=== PATIENT | male | born 1945 | race Caucasian/White ===

== ENCOUNTER 2019-11-21 00:29 | Day surgery (SDC) | payer MEDICARE, SELFPAY ==
[2019-11-18 10:11] VITALS: BMI 34.2
--- NOTE | 2019-11-21 07:19 | WPDHPUPDATE1 ---
History and Physical Update Update Date/Time: 11/21/19 07:19 History and Physical has been reviewed, including an updated exam of the patient. There are NO changes in the patient's condition. Risks, benefits, and alternatives have been discussed and questions answered. Patient agrees to proceed with procedure.
--- NOTE | 2019-11-21 08:51 | ECG_ITS ---
Measurements Intervals [place] Rate: 80 P: 27 VA: 194 QRS: 2 QRSD: 97 T: 52 QT: 376 QTc: 434 Interpretive Statements SINUS RHYTHM EARLY PRECORDIAL R/S TRANSITION BASELINE ARTIFACT- I, II, AVR, V1 BORDERLINE ECG Electronically Signed On 11-21-2019 10:02:49 CDT by Blake Devries D.O.
[2019-11-21 09:00] VITALS: BP 153/63; PULSE 85; RESP 18; TEMP 36.4; O2SAT 100
[2019-11-21] MEDS: LACTATED RINGERS 1,000 ML 30 ML IV CONT (09:30)
--- NOTE | 2019-11-21 09:37 | P.PNAN_ITS ---
Anes - Initial Pre Proc Eval Procedure: Operation Date: 11/21/19 11:00 Proposed Procedures p Cystoscopy, Urethral Dilatation - Dewey Patel MD Date/Time: 11/21/19 09:37 Surgeon: Dewey Patel MD Pre Op Diagnosis: urethral stricture Patient Data Age: 74 Gender: M Height: 5 ft 8 in Weight: 102.27 kg Allergies Allergy/AdvReac Type Severity Reaction Status Date / Time sulfamethoxazole Allergy Severe Anaphylaxis Verified 11/18/19 10:00 sulfamethizole Allergy Unknown Anaphylaxis Verified 11/18/19 10:00 trimethoprim Allergy Unknown Anaphylaxis Verified 11/18/19 10:00 Home Medications Medication Instructions Recorded Confirmed Type guaifenesin 1,200 mg tablet, 1,200 mg PO BID 07/12/19 11/18/19 History extended release 12 hr lisinopril 10 mg tablet 10 mg PO DAILY 07/12/19 11/18/19 History meloxicam 7.5 mg tablet 7.5 mg PO DAILY 07/12/19 11/18/19 History montelukast 10 mg tablet 10 mg PO DAILY 07/12/19 11/18/19 History albuterol sulfate 90 mcg/actuation 2 inhalation INHALATION Q4-6H PRN 07/15/19 11/18/19 Rx aerosol inhaler #8.5 gm fenofibrate 40 mg tablet 160 mg PO DAILY 07/15/19 11/18/19 History fluticasone propionate 50 1 spray NASAL DAILY 07/15/19 11/18/19 History mcg/actuation nasal spray,suspension simvastatin 20 mg tablet 20 mg PO DAILY 07/15/19 11/18/19 History Lianna-Brodhead Plus C/C(PE,DM) 1,200 mg BID 11/18/19 11/18/19 History budesonide-formoterol [Symbicort] 2 puff INHALATION Q12H 11/18/19 11/18/19 History Patient hx anesthesia problems: none Family hx anesthesia problems: none PMFSH Past Medical History Medical History (Updated 11/21/19 @ 09:37 by Hugh Jessica MD) HTN (hypertension) Hypersomnia with sleep apnea, unspecified Obesity Surgical History Surgical History (Updated 11/21/19 @ 09:37 by Hugh Jessica MD) Hx of cystoscopy Family History Family History Mother Family history of emphysema Social History Social History Smoking status: Never smoker Anes - Eval Final PreProcedure Day of Procedure 11/21/19 09:37 Patient weight: obese Heart: regular rate and rhythm Lungs: clear to auscultation Airway: Mallampati scale class II Neurological: alert and oriented Last oral intake: >/= 8 hours ASA classification: III Emergent: no Anesthetic plan: proceed Anesthesia type and monitoring: general LMA and standard monitoring Informed Consent: The patient's anesthetic plan and its attendant risks and benefits were discussed with the patient/family/POA. Questions were solicited and answers provided to the satisfaction of the patient/family/POA.
[2019-11-21] MEDS: ceFAZolin 2 GM/D5W 50 ML 2 GM/50 ML BAG IVPB (10:05)
[2019-11-21] MEDS: LIDOCAINE HCL 2% GEL UROJET 10 ML PKG MUCOUS MEM (10:09)
--- NOTE | 2019-11-21 10:35 | SUR.OPER ---
EBL 25
--- NOTE | 2019-11-21 10:47 | PM.PROC ---
Procedure Note - Detailed Date of procedure: 11/21/19 Pre-op diagnosis: urethral stricture Post-op diagnosis: other (1. Bulbous urethral stricture 2. Bladder neck contracture) Procedure performed: 1. Optical internal urethrotomy. 2. Cystoscopy, urethral dilatation. Description of procedure: The patient was brought to the operative suite where he was prepped and draped in a routine sterile fashion while in a dorsal lithotomy position after the uneventful administration of general anesthetic by the anesthesia department. 2% Lidocaine was placed in the uretha and allowed to stand for an appropriate period of time. Cystoscopy was undertaken with a 19F rigid cystoscope. He has a long, tight constricting stricture of the bulbous urethra. Using the optical urethratome, I incised the strictured urethra at the 12 o'clock position care taken to avoid injury to the membranous urethra. I then found a tight bladder neck contracture that I dilated with Amplatz over a guidewire from 12F->24F. An 18F Nolas[place] catheter was placed, the bladder was emptied and the patient was taken to the recovery room in good condition. Anesthesia: GLMA Surgeon: Dewey Patel MD Estimated blood loss (mL): 0 Drains: Yes (18F [place] tip catheter.) Packing: No Pathology: none sent Complications: No immediate complications Condition: stable Disposition: PACU
[2019-11-21 11:08] VITALS: BP 118/44; PULSE 72; RESP 18; TEMP 36.6; O2SAT 100
[2019-11-21 11:38] VITALS: BP 120/57; PULSE 78; RESP 16; O2SAT 100
[2019-11-21 12:13] VITALS: BP 123/58; PULSE 75; RESP 18; O2SAT 98
== END 2019-11-21 12:15 | disposition home or self-care (01) ==
PROVIDERS: PCP Internal Medicine; Visit Provider Urology
PROC: 0T7D8ZZ Dilation of Urethra, Via Natural or Artificial Opening Endoscopic (ICD-10-PCS; CPT 52281; principal; 2019-11-21 11:00)
DX: N35.912 Unspecified bulbous urethral stricture, male (principal); I10 Essential (primary) hypertension; G47.10 Hypersomnia, unspecified; G47.30 Sleep apnea, unspecified; E66.9 Obesity, unspecified; Z68.34 Body mass index [BMI] 34.0-34.9, adult
CPT/HCPCS: 52276; 93005; A9270; C1726; C1769; J0690; J2370; J2405; J2704; J3010; J7120

== ENCOUNTER 2020-08-24 13:18 | Outpatient (CLI) | payer MEDICARE, SELFPAY ==
--- NOTE | ~2020-08-24 | CT_ITS ---
EXAMINATION: CT chest wo con DATE: 08/24/2020 13:42 INDICATION: Dirk Romero lung, COPD, history of asthma TECHNIQUE: Computed tomography (CT) of the chest was performed without intravenous contrast. The dose -length product (DLP) was 234.18 mGy-cm. Automated exposure control and iterative reconstruction tech Anametrix were employed. COMPARISON: 10/12/2018 FINDINGS: There are scattered stable nodules in the lungs which measure up to 3 mm, consistent with o ld granulomatous disease. There are groundglass opacities in the lower lobes and right middle lobe. T here is mild emphysema. No pleural effusion or pneumothorax is identified. The heart size is normal. There is calcified coronary artery atherosclerosis. There are no pathologically enlarged thoracic lym ph nodes. There are bridging osteophytes at multiple levels in the spine, consistent with diffuse idi opathic skeletal hyperostosis (DISH). IMPRESSION: 1. Patchy groundglass opacities of the lower lobes and right middle lobe which may be infectious or i nflammatory. 2. Mild emphysema. Reviewed, dictated and finalized at location A. EO RETINAL SURGEON IMPRESSION: 1. Patchy groundglass opacities of the lower lobes and right middle lobe which may be infectious or inflammatory. 2. Mild emphysema.
== END 2020-08-24 13:19 | disposition home or self-care (01) ==
PROVIDERS: PCP Internal Medicine; Visit Provider Nurse Practitioner Family
DX: J44.9 Chronic obstructive pulmonary disease, unspecified (principal); J67.2 Bird fancier's lung; R91.8 Other nonspecific abnormal finding of lung field; J43.9 Emphysema, unspecified
CPT/HCPCS: 71250

== ENCOUNTER → 2021-01-06 08:36 | Outpatient (CLI) | payer MEDICARE, SELFPAY ==
[2021-01-06 17:41] LABS: SARS-CoV-2 RNA PCR Negative
== END ==
PROVIDERS: PCP Internal Medicine; Visit Provider Urology
DX: Z01.812 Encounter for preprocedural laboratory examination (principal); Z20.822 Contact with and (suspected) exposure to COVID-19
CPT/HCPCS: C9803; U0003; U0005

== ENCOUNTER 2021-01-06 08:44 | Outpatient (CLI) | payer MEDICARE, SELFPAY ==
--- NOTE | 2021-01-06 09:00 | ECG_ITS ---
Measurements Intervals [place] Rate: 77 P: 44 [place]: 220 QRS: 2 QRSD: 95 T: 46 QT: 379 QTc: 431 Interpretive Statements SINUS RHYTHM WITH FIRST DEGREE AV BLOCK CONSIDER INFERIOR INFARCT, AGE INDETERMINATE ABNORMAL ECG Electronically Signed On 01-06-2021 8:59:38 CDT by Blake Devries D.O.
== END 2021-01-06 08:45 | disposition home or self-care (01) ==
LOC: ANHSURGERY 08:49
PROVIDERS: PCP Internal Medicine; Visit Provider Urology
DX: Z01.810 Encounter for preprocedural cardiovascular examination (principal); I44.0 Atrioventricular block, first degree; I10 Essential (primary) hypertension
CPT/HCPCS: 93005

== ENCOUNTER 2021-01-07 00:36 | Day surgery (SDC) | payer MEDICARE, SELFPAY ==
[2021-01-05 16:05] VITALS: BMI 33.5
--- NOTE | 2021-01-07 06:32 | WPDHPUPDATE1 ---
History and Physical Update Update Date/Time: 01/07/21 06:32 History and Physical has been reviewed, including an updated exam of the patient. There are NO changes in the patient's condition. Risks, benefits, and alternatives have been discussed and questions answered. Patient agrees to proceed with procedure.
[2021-01-07] MEDS: LACTATED RINGERS 1,000 ML 30 ML IV CONT (11:00)
--- NOTE | 2021-01-07 11:02 | WPDANESEPPF ---
Anes - Initial Pre Proc Eval Procedure: Operation Date: 01/07/21 12:15 Proposed Procedures p Cystoscopy, Urethral Dilatation - Dewey Patel MD Date/Time: 01/07/21 11:02 Surgeon: Dewey Patel MD Pre Op Diagnosis: bulbous urethral stricture Patient Data Age: 75 Gender: M Height: 5 ft 8 in Weight: 100 kg Allergies Allergy/AdvReac Type Severity Reaction Status Date / Time sulfamethoxazole Allergy Severe Anaphylaxis Verified 01/07/21 10:59 trimethoprim Allergy Severe Anaphylaxis Verified 01/07/21 10:59 Home Medications Medication Instructions Recorded Confirmed Type guaifenesin 1,200 mg tablet, 1,200 mg PO DAILY 07/12/19 01/07/21 History extended release 12 hr lisinopril 10 mg tablet 10 mg PO DAILY 07/12/19 01/07/21 History meloxicam 7.5 mg tablet 15 mg PO DAILY 07/12/19 01/07/21 History montelukast 10 mg tablet 10 mg PO DAILY 07/12/19 01/07/21 History simvastatin 20 mg tablet 20 mg PO DAILY 07/15/19 01/07/21 History budesonide-formoterol HFA 160 2 puff INHALATION Q12H #10.2 g 11/18/20 01/07/21 Rx mcg-4.5 mcg/actuation aerosol inhaler albuterol sulfate [ProAir HFA] 2 puff INHALATION QID PRN 01/05/21 01/07/21 History Patient hx anesthesia problems: none Family hx anesthesia problems: none PMFSH Past Medical History Medical History Chronic obstructive pulmonary disease Dysphagia, unspecified HTN (hypertension) Hypersomnia with sleep apnea, unspecified Obesity Prostate CA Surgical History Surgical History Hx of cystoscopy Family History Family History Mother Family history of emphysema Social History Social History Smoking status: Never smoker Alcohol intake: former Alcohol use details: FORMER SOCIAL DRINKER Substance use: never Living arrangements: with family Additional living arrangements comments: Spiritual care concerns: No Anes - Eval Final PreProcedure Day of Procedure 01/07/21 11:02 Patient weight: obese Heart: regular rate and rhythm Lungs: decreased breath sounds Airway: Mallampati scale class II Neurological: other (alert) Last oral intake: >/= 8 hours ASA classification: III Emergent: no Anesthetic plan: proceed Anesthesia type and monitoring: general GIVS and standard monitoring Informed Consent: The patient's anesthetic plan and its attendant risks and benefits were discussed with the patient/family/POA. Questions were solicited and answers provided to the satisfaction of the patient/family/POA.
[2021-01-07 11:03] VITALS: BP 152/71; PULSE 90; RESP 16; TEMP 36.6; O2SAT 98
[2021-01-07] MEDS: ceFAZolin 2 GM/D5W 50 ML 2 GM/50 ML BAG IVPB (12:34)
[2021-01-07] MEDS: LIDOCAINE HCL 2% GEL UROJET 10 ML PKG MUCOUS MEM (12:54)
--- NOTE | 2021-01-07 13:06 | P.OP_ITS ---
Procedure Note - Detailed Date of procedure: 01/07/21 Pre-op diagnosis: bulbous urethral stricture Post-op diagnosis: same Procedure performed: Cystoscopy, urethral dilatation Description of procedure: The patient was brought to the operative suite where he was prepped and draped in a routine sterile fashion while in a dorsal lithotomy position after the uneventful induction of a general LMA anesthetic. Cystoscopy was undertaken with a 19F rigid cystoscope. There was a very dense bulbous urethral stricture, as before. The bladder itself was endoscopically normal without foreign body or neoplasm. The bladder mucosa was without hype remia. There was a single orthotopic ureteral orifice bilaterally with clear efflux of urine. Using the Amplatz dilators over a Superstiff wire I dilated the urethra and bladder neck from 8F -> 24F. I left a 20 F cou[place] tip catheter in the bladder. Efflux was clear at the termination. The bladder was emptied and the patient was taken to the recovery room in good condition Anesthesia: MAC Surgeon: Dewey Patel MD Dry Cleaning Attendant: None Drains: Yes Packing: No Pathology: none sent Complications: No immediate complications Condition: stable Disposition: PACU
[2021-01-07 13:15] VITALS: BP 116/90; PULSE 79; RESP 12; O2SAT 96
[2021-01-07] MEDS: fentaNYL CITRATE INJ (*CRX) 100 MCG/2 ML VIAL 25 MCG IV PUSH ×2 (13:37→13:40)
[2021-01-07 13:45] VITALS: BP 116/90; PULSE 79; RESP 16
[2021-01-07 14:15] VITALS: BP 117/62; PULSE 80; RESP 16
== END 2021-01-07 14:45 | disposition home or self-care (01) ==
PROVIDERS: PCP Internal Medicine; Visit Provider Urology
PROC: 0T7D8ZZ Dilation of Urethra, Via Natural or Artificial Opening Endoscopic (ICD-10-PCS; CPT 52281; principal; 2021-01-07 12:15)
DX: N35.912 Unspecified bulbous urethral stricture, male (principal); I10 Essential (primary) hypertension; J44.9 Chronic obstructive pulmonary disease, unspecified; G47.19 Other hypersomnia; G47.30 Sleep apnea, unspecified; Z85.46 Personal history of malignant neoplasm of prostate; E66.9 Obesity, unspecified; Z68.34 Body mass index [BMI] 34.0-34.9, adult; Z79.51 Long term (current) use of inhaled steroids
CPT/HCPCS: 52281; 93005; A9270; C1726; C1769; C9803; J0690; J2370; J2704; J3010; J7120; U0003; U0005

== ENCOUNTER 2021-09-23 00:52 | Day surgery (SDC) | payer MEDICARE, SELFPAY ==
[2021-09-15 15:13] VITALS: BMI 32.7
--- NOTE | 2021-09-15 15:17 | PC.NURSE ---
Report to the Outpatient Waiting Room, entrance under the green pavilion located off [facility], at time _0800 on date __09/23/21 . OR Time: 1000 . - You will be asked a series of questions to screen for COVID 19 for your protection. - A mask is required within the hospital. - No visitors are allowed at this time. Preoperative COVID Testing Requirements: No COVID Test needed if: (proof is required; if not received patient will have Rapid Test prior to entry) - Patient has received COVID Vaccine at least 14 days prior to procedure date or - Patient has positive COVID test result within last 90 days of surgery date. COVID Test needed if above criteria is not met If not COVID vaccinated a COVID test must be conducted within 72 hours of surgery and patient is asked to isolate self from time of testing until procedure. You will go to the [facility] for your COVID testing. The [facility] site is located at the corner of [address] from [facility]. You will only be called if COVID results are positive and your surgeon may reschedule your elective surgery date. Patients may have clear liquids (water, carbonated beverages, clear teas, apple juice) until 3 hours prior to surgery with a maximum of 20 ounces. - No food from midnight until time of surgery - Infants may have breast milk until 4 hours before surgery, infant formula 6 hours prior to surgery. - Children will be allowed to drink immediately following surgery. If applicable, please bring a bottle or sippy cup to assist with drinking. Juice, water, soda, and popsicles are readily available. For infants on formula, please bring formula the day of surgery. Pacifiers are allowed. Take the following medications with a SIP of water the morning of surgery: __SYMBICORT INHALER Medications to discontinue per physician NONE Date to take last dose Please no make-up, nail sinhala, hairspray, perfume, deodorant, or body powder the day of surgery. No jewelry (including any body piercings) or valuables the day of surgery, leave them at home. Please take a shower or bath the night before, or the morning of, surgery with an antibacterial soap. Wear comfortable, loose fitting clothing. Children are encouraged to wear pajamas. - Jewelry must be removed prior to entering the operating room. Rings and piercings that are not removed may be cut off. - The hospital will not accept responsibility for valuables. - Please leave all valuables, including medications, at home the day of surgery. If you are going home after surgery, a licensed shuttle bus driver must drive you home. - NO public transportation without another adult. - We recommend that an adult stay with you for 24 hours following discharge. - We also recommend that you do not drive, make important decision, drink alcoholic beverages, or take any drugs that were not prescribed by your health care provider for at least 24 hours after your discharge time. For Pediatric surgeries, we recommend two adults accompany the child home (only one inside the building at this time). Follow any additional instructions given to you from your surgeon. Telephone instructions given to __PATIENT and asked if any additional questions and then verbalized understanding. Patient advised to call surgeon office or pre surgery nurse liaison [phone] if any additional questions.
--- NOTE | 2021-09-23 06:36 | WPDHPUPDATE1 ---
History and Physical Update Update Date/Time: 09/23/21 06:36 History and Physical has been reviewed, including an updated exam of the patient. There are NO changes in the patient's condition. Risks, benefits, and alternatives have been discussed and questions answered. Patient agrees to proceed with procedure.
[2021-09-23 08:16] VITALS: BP 139/54; PULSE 93; RESP 20; TEMP 36.6; O2SAT 95
[2021-09-23] MEDS: LACTATED RINGERS 1,000 ML 30 ML IV CONT (08:45)
--- NOTE | 2021-09-23 09:27 | WPDANESEPPF ---
Anes - Initial Pre Proc Eval Procedure: Operation Date: 09/23/21 10:00 Proposed Procedures p Cystoscopy, Urethral Dilatation - Dewey Ptael MD Date/Time: 09/23/21 09:27 Surgeon: Dewey Patel MD Pre Op Diagnosis: bulbous urethral stricture Patient Data Age: 76 Gender: M Height: 1.73 m Weight: 97 kg Last Vital Signs Temp 36.6 C 09/23/21 08:16 Pulse 93 09/23/21 08:16 Resp 20 09/23/21 08:16 BP 139/54 L 09/23/21 08:16 Pulse Ox 95 09/23/21 08:16 Allergies Allergy/AdvReac Type Severity Reaction Status Date / Time sulfamethoxazole Allergy Severe Anaphylaxis Verified 09/23/21 08:59 trimethoprim Allergy Severe Anaphylaxis Verified 09/23/21 08:59 Home Medications Medication Instructions Recorded Confirmed Type guaifenesin 1,200 mg tablet, 1,200 mg PO DAILY 07/12/19 09/23/21 History extended release 12 hr lisinopril 10 mg tablet 10 mg PO DAILY 07/12/19 09/23/21 History meloxicam 7.5 mg tablet 15 mg PO BID 07/12/19 09/23/21 History montelukast 10 mg tablet 10 mg PO DAILY 07/12/19 09/23/21 History simvastatin 20 mg tablet 20 mg PO HS 07/15/19 09/23/21 History budesonide-formoterol HFA 160 2 puff INHALATION Q12H #10.2 g 11/18/20 09/23/21 Rx mcg-4.5 mcg/actuation aerosol inhaler albuterol sulfate 90 mcg/actuation 1 - 2 puff INHALATION Q4-6H PRN 02/16/21 09/23/21 Rx aerosol inhaler #8.5 g trazodone 100 mg tablet 100 mg PO PRN PRN 02/16/21 09/23/21 History loratadine [Claritin] 10 mg PO DAILY 09/15/21 09/23/21 History Patient hx anesthesia problems: none Family hx anesthesia problems: none Results Review: All pre-operative results and documents have been reviewed as part of the pre-operative evaluation. [facility] Past Medical History Medical History Chronic obstructive pulmonary disease Dysphagia, unspecified HTN (hypertension) Hypersomnia with sleep apnea, unspecified Obesity Prostate CA Surgical History Surgical History Hx of cystoscopy Family History Family History Mother Family history of emphysema Social History Social History Smoking status: Never smoker Alcohol intake: former Alcohol use details: FORMER SOCIAL DRINKER Substance use: never Living arrangements: with family Additional living arrangements comments: Spiritual care concerns: No Anes - Eval Final PreProcedure Day of Procedure 09/23/21 09:27 Patient weight: obese Heart: regular rate and rhythm Lungs: decreased breath sounds Airway: Mallampati scale class II Neurological: other (alert) Last oral intake: >/= 8 hours ASA classification: IV Emergent: no Anesthetic plan: proceed Anesthesia type and monitoring: general GIVS and standard monitoring Results Review: All pre-operative results and documents have been reviewed as part of the pre-operative evaluation. Informed Consent: The patient's anesthetic plan and its attendant risks and benefits were discussed with the patient/family/POA. Questions were solicited and answers provided to the satisfaction of the patient/family/POA.
[2021-09-23] MEDS: ceFAZolin 2 GM/D5W 50 ML 2 GM/50 ML BAG IVPB (09:59)
[2021-09-23] MEDS: LIDOCAINE HCL 2% GEL UROJET 10 ML PKG MUCOUS MEM (09:59)
--- NOTE | 2021-09-23 10:20 | W.PM.PROC2 ---
Procedure Note - Detailed Date of Procedure 09/23/21 Pre-op Diagnosis Bulbous urethral stricture Post-op Diagnosis same Procedure Performed Cystoscopy, urethral dilatation and catheter placement Surgeon Dewey Patel MD Anesthesia MAC Description of Procedure The patient was brought to the operative suite where he was prepped and draped in a routine sterile fashion while in a dorsal lithotomy position after the uneventful induction of a general LMA anesthetic. Cystoscopy was undertaken with a 19F rigidcystoscope. There was a dense/thick, tight bulbous urethral stricture. The prostatic urethral estimated length was 1.5cm. There wasmild obstruction of the prostatic urethra with no median lobe enlargement. The bladder itself was endoscopically normal without foreign body or neoplasm. The bladder mucosa was without hyperemia. There was a single orthotopic ureteral orifice bilaterally with clear efflux of urine. Using the Amplatz dilators over a 0.035 guidewire I dilated the urethra and bladder neck from 8F -> 22 F. An 18 F [place] tip catheter was placed in the bladder. The bladder was emptied and the patient was taken to the recovery room in good condition Drains Yes Packing No Pathology yes Complications No immediate complications Condition stable Disposition PACU
[2021-09-23 10:25] VITALS: BP 126/62; PULSE 75; RESP 12; O2SAT 98
[2021-09-23 10:55] VITALS: BP 118/60; PULSE 78; RESP 16; O2SAT 97
[2021-09-23 11:25] VITALS: BP 128/54; PULSE 75; RESP 16; O2SAT 96
[2021-09-23 11:55] VITALS: BP 142/63; PULSE 82; RESP 16
== END 2021-09-23 12:00 | disposition home or self-care (01) ==
PROVIDERS: PCP Internal Medicine; Visit Provider Urology
PROC: 0T7D8ZZ Dilation of Urethra, Via Natural or Artificial Opening Endoscopic (ICD-10-PCS; CPT 52281; principal; 2021-09-23 10:00)
DX: N35.912 Unspecified bulbous urethral stricture, male (principal); Z85.46 Personal history of malignant neoplasm of prostate; Z85.89 Personal history of malignant neoplasm of other organs and systems; E78.00 Pure hypercholesterolemia, unspecified; J45.909 Unspecified asthma, uncomplicated; M19.90 Unspecified osteoarthritis, unspecified site; J44.9 Chronic obstructive pulmonary disease, unspecified; Z79.51 Long term (current) use of inhaled steroids; E66.9 Obesity, unspecified; Z68.32 Body mass index [BMI] 32.0-32.9, adult
CPT/HCPCS: 52281; A9270; C1726; C1769; J0690; J2405; J2704; J3010; J7120